=== PATIENT | female | born 1970 | race Caucasian/White ===

== ENCOUNTER 2018-02-05 15:07 | Emergency (ER) | payer SELFPAY ==
[~2018-02-05] VITALS: Ht 177.8 cm; Wt 120.2 kg
[2018-02-05] MEDS ORDERED: ASPIRIN 81 MG CHEW TAB PO ONE (15:15)
[2018-02-05 15:53] LABS: BASOPHILS % 0.4 % (0.0-1.0); EOSINOPHILS # (AUTO) 0.2 (0.0-0.4); HEMATOCRIT 39.7 % (34.2-44.1); HEMOGLOBIN 13.4 g/dL (12.0-16.0); LYMPHOCYTES # (AUTO) 1.6 (1.0-3.2); MEAN CORPUSCULAR HEMOGLOBIN 32.8 pg (28-32); MEAN CORPUSCULAR HGB CONC 33.8 g/dL (31-35); MEAN CORPUSCULAR VOLUME 97.1 fL (81-99); MONOCYTES # (AUTO) 0.7 (0.2-0.8); MONOCYTES % 7.1 % (4.4-11.3); NEUTROPHILS # (AUTO) 7.5 (2.1-6.9); NEUTROPHILS % 74.2 % (38.7-80.0); PLATELET COUNT 263 x10e3/uL (140-360); RED BLOOD COUNT 4.09 x10e6/uL (3.6-5.1); RED CELL DISTRIBUTION WIDTH 13.3 % (11.7-14.4)
[2018-02-05 16:00] LABS: INR 1.03; PARTIAL THROMBOPLASTIN TIME 28.4 seconds (23.8-35.5); PROTHROMBIN TIME 12.7 seconds (11.9-14.5)
[2018-02-05 16:11] LABS: ALANINE AMINOTRANSFERASE 17 IU/L (0-55); ALBUMIN 3.8 g/dL (3.5-5.0); ALKALINE PHOSPHATASE 92 IU/L (40-150); ANION GAP 14.8 mmol/L (8-16); BLOOD UREA NITROGEN 8 mg/dL (7-26); BUN/CREATININE RATIO 11 (6-25); CALCIUM 9.1 mg/dL (8.4-10.2); CARBON DIOXIDE 21 mmol/L (22-29); CHLORIDE 108 mmol/L (98-107); CREATINE KINASE 72 IU/L (29-168); CREATININE, SERUM 0.75 mg/dL (0.57-1.11); EST GLOMERULAR FILTRATION RATE > 60 ML/MIN (60-); GLUCOSE 97 mg/dL (74-118); POTASSIUM 3.8 mmol/L (3.5-5.1); SODIUM 140 mmol/L (136-145)
[2018-02-05] MEDS ORDERED: CLINDAMYCIN PHOS 900MG/ D5W 50 50 ML IV STA (16:22)
--- NOTE | 2018-02-05 17:10 | Diagnostic Imaging Report ---
EXAMINATION: CHEST SINGLE (PORTABLE) INDICATION: \S\CP \[id number] \S\1615 COMPARISON: None FINDINGS: AP view TUBES and LINES: None. LUNGS: Lungs are well inflated. Lungs are clear. There is no evidence of pneumonia or pulmonary edema. PLEURA: No pleural effusion or pneumothorax. HEART AND MEDIASTINUM: The cardiomediastinal silhouette is unremarkable. BONES AND SOFT TISSUES: No acute osseous lesion. Soft tissues are unremarkable. UPPER ABDOMEN: No free air under the diaphragm. IMPRESSION: No acute thoracic abnormality. Signed by: Dr. Juan Espinal MD on 02/05/2018 5:07 PM
== END 2018-02-05 17:28 | disposition home or self-care (01) ==
LOC: ER 15:14
DX: R07.89 Other chest pain (principal); I10 Essential (primary) hypertension
CPT/HCPCS: 36415; 71045; 80053; 82550; 82553; 84484; 85025; 85610; 85730; 93005; 99284

== ENCOUNTER 2018-02-06 13:33 | Emergency (ER) | payer SELFPAY ==
[~2018-02-06] VITALS: Ht 177.8 cm; Wt 120.2 kg
--- OUTSIDE RECORDS SUMMARY | 2018-02-06 13:35 | XMS REPORT ---
Author Author [facility] Address Unknown Phone Unavailable Care Team Providers Care Assistance Specialist Name Role Phone KELI JIMENEZ Unavailable Unavailable Problems This patient has no known problems. Allergies, Adverse Reactions, Alerts This patient has no known allergies or adverse reactions. Medications This patient has no known medications. Results Test Description Test Time Test Comments Text Results Atomic Results Result Comments CHEST SINGLE (PORTABLE) [place] [address] Patient Name: JOSELYN SEVILLA MR #: [id number] : 1970 Age/Sex: 47/F Req #: [id number] Adm Physician: Ordered by: KELI JIMENEZ MD Report #: [id number] Location: ER Room/Bed: Procedure: [id number] DX/CHEST SINGLE (PORTABLE) Exam Date: 02/05/18 Exam Time: 1615 REPORT STATUS: Signed EXAMINATION: CHEST SINGLE (PORTABLE) INDICATION: COMPARISON: None FINDINGS: AP view TUBES and LINES: None. LUNGS: Lungs are well inflated. Lungs are clear. There is no evidence of pneumonia or pulmonary edema. PLEURA: No pleural effusion or pneumothorax. HEART AND MEDIASTINUM: The cardiomediastinal silhouette is unremarkable. BONES AND SOFT TISSUES: No acute osseous lesion. Soft tissues are unremarkable. UPPER ABDOMEN: No free air under the diaphragm. IMPRESSION: No acute thoracic abnormality. Signed by: Dr. Juan Buckley MD on 02/05/2018 5:07 PM Dictated By: JUAN BUCKLEY MD 06 Transcribed By: FARSHAD on 02/05/181706 COPY TO: KELI JIMENEZ MD
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
--- NOTE | 2018-02-06 15:27 | Diagnostic Imaging Report ---
History: Swelling to right side of face underneath the right eye. Comparison studies: None Technique: Axial images were obtained through the paranasal sinuses. Coronal and sagittal images reconstructed from the axial data. Intravenous contrast: None Findings:There is subcutaneous edema and fat stranding in the right inferior maxillary region which extends into the right para symphyseal mandibular region. There is no abscess seen. Please note, evaluation of this region is limited due to streak artifact from the dental magnum. A small subperiosteal abscess cannot completely be excluded. There is periapical lucency seen involving the right maxillary first molar without cortical dehiscence. This is best seen on image 43 of series 3 and image 22 of series 501. Please note the inferior mandible is not included on this exam. Paranasal sinuses: Mild mucosal thickening involving the left posterior ethmoid air cells, right sphenoid sinus and bilateral maxillary sinus. Remaining paranasal sinuses are clear. No air-fluid levels. Other: Nasal vestibule and cavity: Patent Nasal septum: Mild right deviation. Agger Nasi: Clear bilaterally. Turbinates: Non-aerated bilaterally. Johann cells: None Lamina papyracea: Intact. Cribriform plate: Symmetric, 4 mm below the level of the fovea ethmoidalis. Olfactory recesses: Clear Optic nerves: Not dehiscent Onodi cells: None Sphenoid sinuses: Left lateral recess is aerated. There is mild mucosal thickening of the left sphenoid sinus. Sphenoid septum: at midline. Internal carotid arteries: Do not bulge into the sphenoid sinuses. Orbits: No abnormalities. Bones: No abnormalities. Temporal bones: No abnormalities. IMPRESSION: 1. Subcutaneous fat stranding and edema in the right inframaxillary soft tissue extending to the right parasymphyseal soft tissue without abscess seen. Please note, evaluation of this region is slightly limited due to streak artifact from dental amalgam. A small subperiosteal abscess may be obscured due to this artifact. 2. Periapical lucency involving the right maxillary first molar without cortical dehiscence of the buccal cortex. This may reflect and dentigerous cyst versus odontogenic infection, favoring the latter. Correlation with physical examination helpful to differentiate. 3. No evidence of acute sinusitis. Signed by: DR Mark Anthony Palacios M.D. on 02/06/2018 4:07 PM
[2018-02-06] MEDS ORDERED: HYDROMORPHONE 1MG/1ML INJ IV STA (15:52)
[2018-02-06] MEDS ORDERED: ONDANSETRON HCL INJ 2 MG/ML VIAL IV STA (15:52)
[2018-02-06] MEDS ORDERED: CLINDAMYCIN PHOS 900MG/ D5W 50 50 ML IV ONE ×2 (16:30)
[2018-02-06] MEDS ORDERED: HYDROMORPHONE 1MG/1ML INJ IV ONE ×2 (16:30→18:00)
[2018-02-06] MEDS ORDERED: ONDANSETRON HCL INJ 2 MG/ML VIAL IV ONE (16:30)
[2018-02-06] MEDS ORDERED: SODIUM CHLORIDE 0.9% 50ML 50 ML ONE (18:45)
[2018-02-06] MEDS ORDERED: IOPAMIDOL 370 MG/ML 200 ML INFUS..BTL INJ ONE (18:46)
== END 2018-02-06 17:34 | disposition home or self-care (01) ==
LOC: ER 13:33
DX: R68.84 Jaw pain (principal); K04.7 Periapical abscess without sinus
CPT/HCPCS: 70487; 99284; J1170; J2405; Q9967

== ENCOUNTER → 2025-09-18 | Outpatient (REF) | payer OTHER | LOC: RAD 13:41 | PROVIDERS: ATTEND Family Medicine | DX: R94.31 Abnormal electrocardiogram [ECG] [EKG] (principal) | CPT/HCPCS: 93306 ==